=== PATIENT | female | born 1935 | race Caucasian/White ===

== ENCOUNTER 2016-05-20 22:19 | Inpatient (IN) | payer MEDICARE ==
[~2016-05-20] VITALS: Ht 152.4 cm; Wt 76.0 kg
[~2016-05-20 22:19] MED LIST: AMLODIPINE BESYL5 MG PO; AMLODIPINE10 MG PO; AMLODIPINE5 MG PO; ARICEPT5 MG PO; ASPIRIN81 M1 PO; ATENOLOL25 MG PO; BAYER ASPIRIN C81 MG PO; CARAFATE1 G1 PO; CIPRO250 MG PO; CLINDAMYCIN300 MG PO; COLACE100 MG PO; DARVOCET N 1001 TAB PO; DIABETES MEDICATION; DUONEB 3 MG/3 ML3 M1 NEB; FERROUS SULFAT325 M1 PO; GLIPIZIDE5 MG PO; JANUVIA100 MG PO; JANUVIA50 MG PO; KEFLEX500 MG PO; LASIX20 MG; LASIX40 MG PO; LEVOFLOXACIN500 MG PO; LISINOPRIL10 MG PO; LISINOPRIL20 MG PO; LISINOPRIL5 MG PO; LOW DOSE ASPIRI81 MG PO; Lopressor25 MG PO; METFORMIN HCL500 MG; MICRO-K8 MEQ PO; MINITRAN TD; NEXIUM40 MG PO; NITRO TRANS0.2 MG/HR TD; NOVOLOG FLEX100 U/ML SC; PERCOCET 325 MG1 TA2 PO; PLAVIX75 M1 PO; PLAVIX75 MG PO; POTASSIUM CHLOR8 ME1 PO; PRAVACHOL40 MG PO; PREDNISONE10 MG PO; PREDNISONE20 M1 PO; PRILOSEC40 MG PO; RESTORIL15 MG PO; SIMVASTATIN40 MG PO; SYMBICORT1 AE1 INH; TRAD5TAB1 PO; VIBRAMYCIN100 MG PO; VITAMIN C500 MG PO; ZESTRIL,PRINIVIL5 MG PO; ZOFRAN ODT4 MG SL
[2016-05-20 22:26] VITALS: BP 202/82
[2016-05-20 22:58] LABS: BASO % 0.5 % (0.0-1.0); EOS # 0.1 10*3/uL (0.0-0.4); EOS % 1.2 % (1.0-4.0); HEMATOCRIT 32.1 % (37.0-47.0); LYMPH # 1.1 10*3/uL (1.3-4.4); LYMPH % 15.4 % (27.0-41.0); MEAN CELL VOLUME 94.7 fl (81.0-99.0); MEAN CORPUSCULAR HGB 29.5 pg (27.0-31.0); MEAN CORPUSCULAR HGB CONC 31.2 g/dl (33.0-37.0); MEAN PLATELET VOLUME 11.5 fl (9.6-12.3); MONO # 0.4 10*3/uL (0.1-1.0); MONO % 5.2 % (3.0-9.0); NEUT # 5.6 10*3/uL (2.3-7.9); NEUT % 77.3 % (47.0-73.0); PLATELET COUNT AUTOMATED 149 10*3/uL (130-400); RED BLOOD COUNT 3.39 10*6/uL (4.10-5.10); RED CELL DISTRI WIDTH 14.9 % (0-14.5); WHITE BLOOD COUNT 7.3 10*3/uL (4.8-10.8)
[2016-05-20 23:00] VITALS: BP 186/84
[2016-05-20] MEDS ORDERED: LIPITOR40 MG PO (23:00)
[2016-05-20] MEDS ORDERED: OXYGEN NAS (23:01)
[2016-05-20 23:07] LABS: PROTHROMBIN TIME 10.1 SECONDS (9.0-12.4)
[2016-05-20 23:16] LABS: BILIRUBIN, TOTAL 0.5 mg/dl (0.2-1.0); POTASSIUM 3.7 mmol/L (3.5-5.1); TOTAL PROTEIN 6.5 gm/dL (6.4-8.2)
[2016-05-20 23:17] LABS: CKMB 4.3 ng/ml (0.5-3.6); TROPONIN I 0.026 ng/ml (<0.045)
[2016-05-20 23:39] VITALS: BP 188/79
[2016-05-21] VITALS: BP 180/88
[2016-05-21 02:49] VITALS: BP 178/80
[2016-05-21] MEDS ORDERED: PRILOSEC20 M1 PO (02:58)
[2016-05-21 07:16] LABS: BASO % 0.5 % (0.0-1.0); EOS # 0.1 10*3/uL (0.0-0.4); EOS % 0.9 % (1.0-4.0); HEMATOCRIT 32.5 % (37.0-47.0); HEMOGLOBIN 10.3 g/dl (12.0-16.0); LYMPH # 1.6 10*3/uL (1.3-4.4); LYMPH % 20.6 % (27.0-41.0); MEAN CELL VOLUME 93.4 fl (81.0-99.0); MEAN CORPUSCULAR HGB 29.6 pg (27.0-31.0); MEAN CORPUSCULAR HGB CONC 31.7 g/dl (33.0-37.0); MEAN PLATELET VOLUME 11.3 fl (9.6-12.3); MONO # 0.5 10*3/uL (0.1-1.0); MONO % 6.9 % (3.0-9.0); NEUT # 5.5 10*3/uL (2.3-7.9); NEUT % 70.7 % (47.0-73.0); PLATELET COUNT AUTOMATED 170 10*3/uL (130-400); RED BLOOD COUNT 3.48 10*6/uL (4.10-5.10); RED CELL DISTRI WIDTH 14.7 % (0-14.5); WHITE BLOOD COUNT 7.8 10*3/uL (4.8-10.8)
[2016-05-21 07:33] LABS: TROPONIN I 0.037 ng/ml (<0.045)
[2016-05-21 07:34] LABS: HEMOGLOBIN A1c 9.7 % (4.8-5.6)
[2016-05-21 07:36] LABS: CKMB 5.3 ng/ml (0.5-3.6)
[2016-05-21 07:46] LABS: POTASSIUM 3.7 mmol/L (3.5-5.1)
[2016-05-21 07:55] LABS: FREE T4 1.31 ng/dl (0.76-1.46); THYROID STIM HORMONE (HS) 0.663 uIU/ml (0.358-4.75)
[2016-05-21 08:00] VITALS: BP 144/78; BP 155/50
[2016-05-21 08:08] LABS: FOLIC ACID 20.94 ng/mL (>5.38)
[2016-05-21 12:30] LABS: CKMB 4.9 ng/ml (0.5-3.6); TROPONIN I 0.025 ng/ml (<0.045)
[2016-05-21 16:25] VITALS: BP 121/60
[2016-05-21 18:20] LABS: TROPONIN I 0.028 ng/ml (<0.045)
[2016-05-21 20:00] VITALS: BP 141/52
[2016-05-22] VITALS: BP 131/46
[2016-05-22 06:07] LABS: BASO % 0.3 % (0.0-1.0); EOS # 0.1 10*3/uL (0.0-0.4); EOS % 2.3 % (1.0-4.0); HEMATOCRIT 30.4 % (37.0-47.0); HEMOGLOBIN 9.6 g/dl (12.0-16.0); LYMPH % 32.8 % (27.0-41.0); MEAN CELL VOLUME 94.1 fl (81.0-99.0); MEAN CORPUSCULAR HGB 29.7 pg (27.0-31.0); MEAN CORPUSCULAR HGB CONC 31.6 g/dl (33.0-37.0); MEAN PLATELET VOLUME 11.5 fl (9.6-12.3); MONO # 0.5 10*3/uL (0.1-1.0); MONO % 7.5 % (3.0-9.0); NEUT # 3.4 10*3/uL (2.3-7.9); NEUT % 56.9 % (47.0-73.0); PLATELET COUNT AUTOMATED 143 10*3/uL (130-400); RED BLOOD COUNT 3.23 10*6/uL (4.10-5.10); RED CELL DISTRI WIDTH 14.7 % (0-14.5)
[2016-05-22 06:20] LABS: ALBUMIN 2.9 gm/dl (3.1-4.5); BILIRUBIN, TOTAL 0.5 mg/dl (0.2-1.0); MAGNESIUM 1.9 mg/dL (1.5-2.1); PHOSPHOROUS 2.8 mg/dL (2.5-4.9); POTASSIUM 3.4 mmol/L (3.5-5.1); TOTAL PROTEIN 5.8 gm/dL (6.4-8.2)
[2016-05-22 08:00] VITALS: BP 132/46
[2016-05-22] MEDS ORDERED: LASIX40 MG PO (11:12)
[2016-05-22] MEDS ORDERED: KLOR-CON M2020 ME1 PO (11:16)
[2016-05-22 12:00] VITALS: BP 136/52
== END 2016-05-22 13:00 | disposition home or self-care (01) | DRG 291 ==
LOC: ED 22:19 → 5E 23:39 → EDHOLD 23:39 → 5E 23:47
PROVIDERS: Family Medicine Sports Medicine; Internal Medicine
DX: I13.0 Hypertensive heart and chronic kidney disease with heart failure and stage 1 through stage 4 chronic kidney disease, or unspecified chronic kidney disease (principal); J96.00 Acute respiratory failure, unspecified whether with hypoxia or hypercapnia; E44.0 Moderate protein-calorie malnutrition; I50.9 Heart failure, unspecified; N18.3 Chronic kidney disease, stage 3 (moderate); F03.90 Unspecified dementia, unspecified severity, without behavioral disturbance, psychotic disturbance, mood disturbance, and anxiety; E78.5 Hyperlipidemia, unspecified; K21.9 Gastro-esophageal reflux disease without esophagitis; E11.9 Type 2 diabetes mellitus without complications; E66.9 Obesity, unspecified; Z95.0 Presence of cardiac pacemaker; Z90.710 Acquired absence of both cervix and uterus; Z95.1 Presence of aortocoronary bypass graft; Z87.891 Personal history of nicotine dependence; Z79.02 Long term (current) use of antithrombotics/antiplatelets; Z79.4 Long term (current) use of insulin; Z68.32 Body mass index [BMI] 32.0-32.9, adult; Z79.82 Long term (current) use of aspirin; Z79.899 Other long term (current) drug therapy; Z88.1 Allergy status to other antibiotic agents; Z88.8 Allergy status to other drugs, medicaments and biological substances; Z82.49 Family history of ischemic heart disease and other diseases of the circulatory system; Z83.3 Family history of diabetes mellitus

== ENCOUNTER → 2016-06-21 | Outpatient (CLI) | payer MEDICARE ==
[~2016-06-21] MED LIST changes: +KLOR-CON M2020 ME1 PO; +LIPITOR40 MG PO; +OXYGEN NAS; +PRILOSEC20 M1 PO
== END | disposition home or self-care (01) ==
LOC: CARD 06-13 09:30
DX: I50.1 Left ventricular failure, unspecified (principal)

== ENCOUNTER 2016-09-02 22:56 | Inpatient (IN) | payer MEDICARE ==
[~2016-09-02] VITALS: Ht 152.4 cm; Wt 79.0 kg
[2016-09-02 22:56] VITALS: BP 164/84
[~2016-09-02 22:56] MED LIST changes: +ARICEPT5 M1 PO; -ARICEPT5 MG PO
[2016-09-02 23:19] LABS: BASO % 0.5 % (0.0-1.0); EOS # 0.1 10*3/uL (0.0-0.4); EOS % 1.6 % (1.0-4.0); HEMATOCRIT 31.6 % (37.0-47.0); HEMOGLOBIN 9.8 g/dl (12.0-16.0); LYMPH % 26.1 % (27.0-41.0); MEAN CELL VOLUME 95.2 fl (81.0-99.0); MEAN CORPUSCULAR HGB 29.5 pg (27.0-31.0); MEAN PLATELET VOLUME 11.8 fl (9.6-12.3); MONO # 0.6 10*3/uL (0.1-1.0); MONO % 7.5 % (3.0-9.0); NEUT # 4.9 10*3/uL (2.3-7.9); NEUT % 63.9 % (47.0-73.0); PLATELET COUNT AUTOMATED 159 10*3/uL (130-400); RED BLOOD COUNT 3.32 10*6/uL (4.10-5.10); RED CELL DISTRI WIDTH 13.7 % (0-14.5); WHITE BLOOD COUNT 7.6 10*3/uL (4.8-10.8)
[2016-09-02 23:30] LABS: INTERNATIONAL NORM RATIO 0.9 (2.0-3.5); PROTHROMBIN TIME 9.9 SECONDS (9.0-12.4)
[2016-09-02 23:34] VITALS: BP 134/72
[2016-09-02 23:39] LABS: ALBUMIN 3.2 gm/dl (3.1-4.5); ALKALINE PHOSPHATASE 153 U/L (45-117); BILIRUBIN, TOTAL 0.3 mg/dl (0.2-1.0); BUN 25 mg/dl (7-24); CARBON DIOXIDE 23 mmol/L (21-32); CHLORIDE 107 mmol/L (98-107); EST GLOM FILT AFRICAN AMERICAN 34 ml/min; GLUCOSE 234 mg/dL (65-99); MAGNESIUM 1.8 mg/dL (1.5-2.1); POTASSIUM 4.7 mmol/L (3.5-5.1); SGOT/AST 26 IU/L (3-35); SGPT/ALT 16 U/L (12-78); SODIUM 142 mmol/L (136-145); TOTAL PROTEIN 6.9 gm/dL (6.4-8.2)
[2016-09-02 23:40] LABS: TROPONIN I < 0.015 ng/ml (<0.045)
[2016-09-03] VITALS (9 sets, daily range): BP systolic 123–141; BP diastolic 40–92
[2016-09-03 05:54] LABS: FREE T4 1.15 ng/dl (0.76-1.46); MAGNESIUM 1.8 mg/dL (1.5-2.1); PHOSPHOROUS 2.8 mg/dL (2.5-4.9); POTASSIUM 3.9 mmol/L (3.5-5.1)
[2016-09-03 05:55] LABS: CPK 384 U/L (26-192)
[2016-09-03 05:56] LABS: TROPONIN I < 0.015 ng/ml (<0.045)
[2016-09-03 05:57] LABS: CKMB 5.6 ng/ml (0.5-3.6)
[2016-09-03 05:58] LABS: BASO # 0.1 10*3/uL (0.0-0.1); BASO % 0.6 % (0.0-1.0); EOS # 0.1 10*3/uL (0.0-0.4); EOS % 1.3 % (1.0-4.0); HEMATOCRIT 31.7 % (37.0-47.0); HEMOGLOBIN 9.9 g/dl (12.0-16.0); LYMPH # 2.6 10*3/uL (1.3-4.4); LYMPH % 29.3 % (27.0-41.0); MEAN CELL VOLUME 95.2 fl (81.0-99.0); MEAN CORPUSCULAR HGB 29.7 pg (27.0-31.0); MEAN CORPUSCULAR HGB CONC 31.2 g/dl (33.0-37.0); MEAN PLATELET VOLUME 11.9 fl (9.6-12.3); MONO # 0.6 10*3/uL (0.1-1.0); MONO % 6.9 % (3.0-9.0); NEUT # 5.5 10*3/uL (2.3-7.9); NEUT % 61.5 % (47.0-73.0); PLATELET COUNT AUTOMATED 153 10*3/uL (130-400); RED BLOOD COUNT 3.33 10*6/uL (4.10-5.10); RED CELL DISTRI WIDTH 13.6 % (0-14.5); WHITE BLOOD COUNT 8.9 10*3/uL (4.8-10.8)
[2016-09-03 06:01] LABS: THYROID STIM HORMONE (HS) 1.39 uIU/ml (0.358-4.75)
[2016-09-03 06:19] LABS: INTERNATIONAL NORM RATIO 0.9 (2.0-3.5)
[2016-09-03 07:22] LABS: HEMOGLOBIN A1c 8.8 % (4.8-5.6)
[2016-09-03 07:30] LABS: FOLIC ACID 15.79 ng/mL (>5.38); VITAMIN D, 25-HYDROXY 21.7 ng/mL (30-100)
[2016-09-03] MEDS ORDERED: NORVASC5 MG PO (13:38)
[2016-09-03] MEDS ORDERED: ZESTRIL10 MG PO (13:40)
[2016-09-04] VITALS: BP 119/86
[2016-09-04 08:08] LABS: BASO % 0.5 % (0.0-1.0); EOS # 0.1 10*3/uL (0.0-0.4); EOS % 0.9 % (1.0-4.0); HEMATOCRIT 32.1 % (37.0-47.0); HEMOGLOBIN 9.9 g/dl (12.0-16.0); LYMPH # 1.4 10*3/uL (1.3-4.4); LYMPH % 17.8 % (27.0-41.0); MEAN CELL VOLUME 95.3 fl (81.0-99.0); MEAN CORPUSCULAR HGB 29.4 pg (27.0-31.0); MEAN CORPUSCULAR HGB CONC 30.8 g/dl (33.0-37.0); MEAN PLATELET VOLUME 11.2 fl (9.6-12.3); MONO # 0.4 10*3/uL (0.1-1.0); MONO % 5.1 % (3.0-9.0); NEUT # 5.7 10*3/uL (2.3-7.9); NEUT % 75.3 % (47.0-73.0); PLATELET COUNT AUTOMATED 166 10*3/uL (130-400); RED BLOOD COUNT 3.37 10*6/uL (4.10-5.10); RED CELL DISTRI WIDTH 13.7 % (0-14.5); WHITE BLOOD COUNT 7.6 10*3/uL (4.8-10.8)
[2016-09-04 08:29] LABS: POTASSIUM 4.5 mmol/L (3.5-5.1)
[2016-09-04 09:52] VITALS: BP 109/39
[2016-09-04 09:56] VITALS: BP 135/53
[2016-09-04 12:00] VITALS: BP 137/57
[2016-09-04] MEDS ORDERED: CARVEDILOL3.125 MG PO (14:13)
== END 2016-09-04 15:31 | disposition home or self-care (01) | DRG 193 ==
LOC: ED 22:56 → 4E 09-03 01:26 → EDHOLD 09-03 01:26 → ICCU 09-03 01:43 → 4E 09-03 13:39
PROVIDERS: Emergency Medicine Emergency Medical Services; Internal Medicine; Internal Medicine Nephrology
DX: J18.9 Pneumonia, unspecified organism (principal); N17.0 Acute kidney failure with tubular necrosis; I13.0 Hypertensive heart and chronic kidney disease with heart failure and stage 1 through stage 4 chronic kidney disease, or unspecified chronic kidney disease; E44.0 Moderate protein-calorie malnutrition; J44.0 Chronic obstructive pulmonary disease with (acute) lower respiratory infection; I50.22 Chronic systolic (congestive) heart failure; E11.22 Type 2 diabetes mellitus with diabetic chronic kidney disease; N18.3 Chronic kidney disease, stage 3 (moderate); K21.9 Gastro-esophageal reflux disease without esophagitis; I25.10 Atherosclerotic heart disease of native coronary artery without angina pectoris; R07.89 Other chest pain; E11.65 Type 2 diabetes mellitus with hyperglycemia; G30.9 Alzheimer's disease, unspecified; F02.80 Dementia in other diseases classified elsewhere, unspecified severity, without behavioral disturbance, psychotic disturbance, mood disturbance, and anxiety; E66.9 Obesity, unspecified; E78.5 Hyperlipidemia, unspecified; J44.9 Chronic obstructive pulmonary disease, unspecified; K44.9 Diaphragmatic hernia without obstruction or gangrene; Z95.0 Presence of cardiac pacemaker; Z68.34 Body mass index [BMI] 34.0-34.9, adult; Z88.1 Allergy status to other antibiotic agents; Z88.8 Allergy status to other drugs, medicaments and biological substances; Z95.1 Presence of aortocoronary bypass graft; Z90.710 Acquired absence of both cervix and uterus; Z83.3 Family history of diabetes mellitus; Z82.49 Family history of ischemic heart disease and other diseases of the circulatory system; Z99.81 Dependence on supplemental oxygen; Z87.891 Personal history of nicotine dependence; Z79.82 Long term (current) use of aspirin; Z79.899 Other long term (current) drug therapy; Z79.84 Long term (current) use of oral hypoglycemic drugs

== ENCOUNTER → 2016-09-25 | Outpatient (CLI) | payer MEDICARE ==
[~2016-09-25] MED LIST changes: +CARVEDILOL3.125 MG PO; +NORVASC5 MG PO; +ZESTRIL10 MG PO
== END ==
LOC: LAB 12:49
DX: R89.9 Unspecified abnormal finding in specimens from other organs, systems and tissues (principal)

== ENCOUNTER 2016-11-23 23:19 | Emergency (ER) | payer MEDICARE ==
[~2016-11-23] VITALS: Ht 152.4 cm; Wt 73.9 kg
[2016-11-23 23:29] VITALS: BP 187/70
== END 2016-11-24 00:59 | disposition home or self-care (01) ==
LOC: ED 23:19
DX: S62.102A Fracture of unspecified carpal bone, left wrist, initial encounter for closed fracture (principal); Z87.891 Personal history of nicotine dependence; Z95.1 Presence of aortocoronary bypass graft; Z79.82 Long term (current) use of aspirin; W01.0XXA Fall on same level from slipping, tripping and stumbling without subsequent striking against object, initial encounter; Y93.89 Activity, other specified; Y92.9 Unspecified place or not applicable; Y99.9 Unspecified external cause status

== ENCOUNTER 2017-04-26 09:53 | Emergency (ER) | payer MEDICARE ==
[~2017-04-26] VITALS: Ht 152.4 cm; Wt 68.0 kg
[2017-04-26 12:35] LABS: ALBUMIN 2.8 gm/dl (3.1-4.5); CREATININE 1.61 mg/dL (0.55-1.02); POTASSIUM 3.3 mmol/L (3.5-5.1); TOTAL PROTEIN 6.4 gm/dL (6.4-8.2)
[2017-04-26 13:01] LABS: BASO % 0.2 % (0.0-1.0); HEMATOCRIT 31.2 % (37.0-47.0); HEMOGLOBIN 9.7 g/dl (12.0-16.0); LYMPH % 16.4 % (27.0-41.0); MEAN CORPUSCULAR HGB 29.8 pg (27.0-31.0); MEAN CORPUSCULAR HGB CONC 31.1 g/dl (33.0-37.0); MEAN PLATELET VOLUME 11.5 fl (9.6-12.3); MONO # 0.7 10*3/uL (0.1-1.0); MONO % 10.7 % (3.0-9.0); NEUT # 4.6 10*3/uL (2.3-7.9); NEUT % 72.2 % (47.0-73.0); PLATELET COUNT AUTOMATED 157 10*3/uL (130-400); RED BLOOD COUNT 3.25 10*6/uL (4.10-5.10); RED CELL DISTRI WIDTH 14.1 % (0-14.5); WHITE BLOOD COUNT 6.4 10*3/uL (4.8-10.8)
[2017-04-26 15:22] VITALS: BP 150/75
[2017-04-26] MEDS ORDERED: IMODIUM A-D2 M2 PO (15:48)
[2017-04-26] MEDS ORDERED: TAMIFLU 75MG CA75 MG PO (15:49)
== END 2017-04-26 16:03 | disposition home or self-care (01) ==
LOC: ED 09:53
PROVIDERS: Emergency Medicine
DX: J11.1 Influenza due to unidentified influenza virus with other respiratory manifestations (principal); R19.7 Diarrhea, unspecified; E78.5 Hyperlipidemia, unspecified; K21.9 Gastro-esophageal reflux disease without esophagitis; E66.9 Obesity, unspecified; I13.0 Hypertensive heart and chronic kidney disease with heart failure and stage 1 through stage 4 chronic kidney disease, or unspecified chronic kidney disease; E11.22 Type 2 diabetes mellitus with diabetic chronic kidney disease; N18.3 Chronic kidney disease, stage 3 (moderate); I50.9 Heart failure, unspecified; Z95.1 Presence of aortocoronary bypass graft; Z90.710 Acquired absence of both cervix and uterus; Z87.891 Personal history of nicotine dependence; Z98.890 Other specified postprocedural states; Z68.34 Body mass index [BMI] 34.0-34.9, adult; Z95.0 Presence of cardiac pacemaker; Z86.73 Personal history of transient ischemic attack (TIA), and cerebral infarction without residual deficits; Z88.1 Allergy status to other antibiotic agents; Z88.5 Allergy status to narcotic agent; Z88.6 Allergy status to analgesic agent; Z79.82 Long term (current) use of aspirin

== ENCOUNTER 2017-06-09 09:54 | Emergency (ER) | payer MEDICARE ==
[~2017-06-09] VITALS: Wt 68.0 kg
[~2017-06-09 09:54] MED LIST changes: +IMODIUM A-D2 M2 PO; +TAMIFLU 75MG CA75 MG PO
[2017-06-09 10:03] VITALS: BP 150/69
[2017-06-09] MEDS ORDERED: Motrin,Rufen800 MG PO (11:38)
== END 2017-06-09 11:49 | disposition home or self-care (01) ==
LOC: ED 09:54
DX: S52.125A Nondisplaced fracture of head of left radius, initial encounter for closed fracture (principal); R60.0 Localized edema; M25.552 Pain in left hip; I13.0 Hypertensive heart and chronic kidney disease with heart failure and stage 1 through stage 4 chronic kidney disease, or unspecified chronic kidney disease; E11.22 Type 2 diabetes mellitus with diabetic chronic kidney disease; N18.3 Chronic kidney disease, stage 3 (moderate); I50.9 Heart failure, unspecified; J44.9 Chronic obstructive pulmonary disease, unspecified; E78.5 Hyperlipidemia, unspecified; K21.9 Gastro-esophageal reflux disease without esophagitis; E66.9 Obesity, unspecified; Z68.34 Body mass index [BMI] 34.0-34.9, adult; Z95.0 Presence of cardiac pacemaker; Z90.710 Acquired absence of both cervix and uterus; Z95.1 Presence of aortocoronary bypass graft; Z98.890 Other specified postprocedural states; Z87.891 Personal history of nicotine dependence; Z79.82 Long term (current) use of aspirin; Z79.899 Other long term (current) drug therapy; Z86.73 Personal history of transient ischemic attack (TIA), and cerebral infarction without residual deficits; Z88.5 Allergy status to narcotic agent; Z88.6 Allergy status to analgesic agent; Z88.1 Allergy status to other antibiotic agents; W01.198A Fall on same level from slipping, tripping and stumbling with subsequent striking against other object, initial encounter; Y93.89 Activity, other specified; Y92.89 Other specified places as the place of occurrence of the external cause; Y99.9 Unspecified external cause status

== ENCOUNTER → 2017-07-05 | Outpatient (CLI) | payer MEDICARE ==
[~2017-07-05] MED LIST changes: +Motrin,Rufen800 MG PO
[2017-07-05 12:41] LABS: HEMATOCRIT 34.5 % (37.0-47.0); HEMOGLOBIN 11.1 g/dl (12.0-16.0); MEAN CELL VOLUME 91.8 fl (81.0-99.0); MEAN CORPUSCULAR HGB 29.5 pg (27.0-31.0); MEAN CORPUSCULAR HGB CONC 32.2 g/dl (33.0-37.0); MEAN PLATELET VOLUME 11.9 fl (9.6-12.3); RED BLOOD COUNT 3.76 10*6/uL (4.10-5.10); RED CELL DISTRI WIDTH 13.8 % (0-14.5); WHITE BLOOD COUNT 11.6 10*3/uL (4.8-10.8)
[2017-07-05 12:52] LABS: CREATININE 1.49 mg/dL (0.55-1.02); POTASSIUM 3.7 mmol/L (3.5-5.1)
== END | disposition home or self-care (01) ==
LOC: LAB 11:58
DX: J44.9 Chronic obstructive pulmonary disease, unspecified (principal); J40 Bronchitis, not specified as acute or chronic; I10 Essential (primary) hypertension; E11.9 Type 2 diabetes mellitus without complications; R09.89 Other specified symptoms and signs involving the circulatory and respiratory systems

== ENCOUNTER → 2017-07-12 | Outpatient (CLI) | payer MEDICARE | END | disposition home or self-care (01) | LOC: ORTHO 02:02 | DX: S42.402D Unspecified fracture of lower end of left humerus, subsequent encounter for fracture with routine healing (principal); X58.XXXD Exposure to other specified factors, subsequent encounter ==

== ENCOUNTER 2017-07-22 17:53 | Emergency (ER) | payer MEDICARE ==
[~2017-07-22] VITALS: Wt 73.0 kg
[2017-07-22 18:24] LABS: BASO % 0.4 % (0.0-1.0); EOS # 0.1 10*3/uL (0.0-0.4); EOS % 1.5 % (1.0-4.0); HEMATOCRIT 32.8 % (37.0-47.0); HEMOGLOBIN 10.1 g/dl (12.0-16.0); LYMPH # 1.3 10*3/uL (1.3-4.4); LYMPH % 19.9 % (27.0-41.0); MEAN CELL VOLUME 95.6 fl (81.0-99.0); MEAN CORPUSCULAR HGB 29.4 pg (27.0-31.0); MEAN CORPUSCULAR HGB CONC 30.8 g/dl (33.0-37.0); MEAN PLATELET VOLUME 10.8 fl (9.6-12.3); MONO # 0.5 10*3/uL (0.1-1.0); NEUT # 4.7 10*3/uL (2.3-7.9); NEUT % 70.8 % (47.0-73.0); PLATELET COUNT AUTOMATED 133 10*3/uL (130-400); RED BLOOD COUNT 3.43 10*6/uL (4.10-5.10); RED CELL DISTRI WIDTH 14.7 % (0-14.5); WHITE BLOOD COUNT 6.7 10*3/uL (4.8-10.8)
[2017-07-22 18:31] LABS: INTERNATIONAL NORM RATIO 0.9 (2.0-3.5)
[2017-07-22 18:40] LABS: ALBUMIN 2.9 gm/dl (3.1-4.5); CREATININE 1.38 mg/dL (0.55-1.02); POTASSIUM 4.2 mmol/L (3.5-5.1); TOTAL PROTEIN 6.2 gm/dL (6.4-8.2)
[2017-07-22 18:42] LABS: TROPONIN I 0.028 ng/ml (<0.045)
[2017-07-22 19:42] VITALS: BP 150/80
== END 2017-07-22 19:41 | disposition home or self-care (01) ==
LOC: ED 17:53
PROVIDERS: Nurse Practitioner Family
DX: S20.219A Contusion of unspecified front wall of thorax, initial encounter (principal); Z88.1 Allergy status to other antibiotic agents; Z88.6 Allergy status to analgesic agent; Z79.899 Other long term (current) drug therapy; Z79.82 Long term (current) use of aspirin; Z87.891 Personal history of nicotine dependence; W18.09XA Striking against other object with subsequent fall, initial encounter; Y93.01 Activity, walking, marching and hiking; Y92.89 Other specified places as the place of occurrence of the external cause; Y99.8 Other external cause status

== ENCOUNTER → 2017-08-29 | Outpatient (CLI) | payer MEDICARE ==
[2017-08-29 10:38] LABS: CREATININE 1.32 mg/dL (0.55-1.02); POTASSIUM 4.6 mmol/L (3.5-5.1)
== END | disposition home or self-care (01) ==
LOC: LAB 09:32
PROVIDERS: Physician Assistant
DX: C44.92 Squamous cell carcinoma of skin, unspecified (principal); R60.0 Localized edema